=== PATIENT | male | born 1995 | race Two or more races ===

== ENCOUNTER 2019-05-04 20:02 | Emergency (ER) | payer BC ==
[~2019-05-04] VITALS: Ht 167.6 cm; Wt 76.6 kg
[2019-05-04 20:04] VITALS: BP 143/88
--- NOTE | 2019-05-04 21:06 | NUR ---
REPORT TO KILLINA BELTRÁN
--- NOTE | 2019-05-04 21:31 | NUR ---
DC EDUCATION PROVIDED, PT DEMONSTRATES UNDERSTANDING. PT AMBULATED STEADILY TO DC WITH RN
== END 2019-05-04 21:32 | disposition home or self-care (01) ==
LOC: ED 21:17
DX: S06.0X0A Concussion without loss of consciousness, initial encounter (principal); X58.XXXA Exposure to other specified factors, initial encounter; Y93.89 Activity, other specified; Y92.009 Unspecified place in unspecified non-institutional (private) residence as the place of occurrence of the external cause; Y99.8 Other external cause status
CPT/HCPCS: 70450; 99284